=== PATIENT | female | born 1945 | race Caucasian/White ===

== ENCOUNTER → 2016-07-20 | Outpatient (CLI) | payer MEDICARE, MEDICAID ==
[~2016-07-20] MED LIST: ATEN50TA2 PO; ELIQ5TAB PO; ERGO500014 PO; FURO20TA2 PO; ONETAB11 PO
[2016-07-20 12:56] LABS: ANION GAP 6 MEQ/L (8-16); BLOOD UREA NITROGEN 16 MG/DL (7-18); CALCIUM LEVEL 8.7 MG/DL (8.8-10.2); CARBON DIOXIDE LEVEL 31 MEQ/L (21-32); CHLORIDE LEVEL 104 MEQ/L (98-107); CREATININE FOR GFR 0.69 MG/DL (0.55-1.02); GLOMERULAR FILTRATION RATE > 60.0 (>39); GLUCOSE, FASTING 107 MG/DL (83-110); POTASSIUM SERUM 4.1 MEQ/L (3.5-5.1); SODIUM LEVEL 141 MEQ/L (136-145)
== END ==
LOC: M LAB 11:58
PROVIDERS: ATTEND Family Medicine
DX: Z13.1 Encounter for screening for diabetes mellitus (principal)

== ENCOUNTER → 2016-08-06 | Outpatient (CLI) | payer MEDICARE, MEDICAID | LOC: M RAD 08:24 | PROVIDERS: ATTEND Family Medicine | DX: R91.1 Solitary pulmonary nodule (principal) ==

== ENCOUNTER → 2016-12-15 | Outpatient (REF) | payer MEDICARE, MEDICAID ==
[~2016-12-15] MED LIST changes: +ONE1TAB3 PO; -ONETAB11 PO
[2016-12-15 17:59] LABS: ANION GAP 7 MEQ/L (8-16); BLOOD UREA NITROGEN 12 MG/DL (7-18); CALCIUM LEVEL 9.5 MG/DL (8.8-10.2); CARBON DIOXIDE LEVEL 31 MEQ/L (21-32); CHLORIDE LEVEL 103 MEQ/L (98-107); CREATININE FOR GFR 0.68 MG/DL (0.55-1.02); GLOMERULAR FILTRATION RATE > 60.0 (>39); GLUCOSE, FASTING 83 MG/DL (83-110); POTASSIUM SERUM 4.3 MEQ/L (3.5-5.1); SODIUM LEVEL 141 MEQ/L (136-145)
== END ==
LOC: M SFHCPLAZ 14:45
PROVIDERS: ATTEND Family Medicine
DX: I10 Essential (primary) hypertension (principal)

== ENCOUNTER → 2017-01-26 | Outpatient (CLI) | payer MEDICARE, MEDICAID ==
--- NOTE | 2017-01-26 12:17 | REPMRS ---
Patient History The patient states she has not had a clinical breast exam in over a year. Patient is postmenopausal and had first child at age 32. No known family history of cancer. Implants in both breasts. Digital Woman Screen Mammo: January 26, 2017 - Exam #: [id number] Bilateral CC and MLO view(s) were taken. Technologist: Ching Moon Technologist Prior study comparison: January 08, 2015, digital woman screen mammo performed at [facility]. FINDINGS: The breast tissue is heterogeneously dense. This may lower the sensitivity of mammography. There is a fairly symmetric fibroglandular pattern in both breasts. There has been no interval development of masses, areas of architectural distortion or clusters of microcalcifications typical of malignancy. The implant margins are irregular bilaterally. There are silicone implants bilaterally. There is hyperdense abnormal material in the anterior breast soft tissues bilaterally consistent with extracapsular rupture with numerous foci of silicone in the soft tissues outside the implant margins. This pattern would significantly decrease the sensitivity of mammography for early breast cancer. There are a few benign calcifications. No definite suspicious findings. No significant changes when compared with prior studies. ASSESSMENT: BI-RADS/ACR category 2 mammogram. Benign finding(s). The sensitivity of mammography for breast malignancy is inhibited because of extracapsular silicone in the breast tissue and lack of optimal mammographic technique. Consider bilateral breast MRI scanning. Recommendation Routine screening mammogram of both breasts in 1 year (for women over age 40). This mammogram was interpreted with the aid of an FDA-approved computer-aided dectection system. Electronically Signed By: Marcelino Francisco MD 01/26/17 [id number]
--- NOTE | 2017-01-27 07:48 | DEXA ---
AP SPINE L1 - L4 1.162 -0.3 1.4 LT FEMUR TOTAL 0.735 -2.2 -0.6 RT FEMUR TOTAL 0.742 -2.1 -0.5 TOTAL BODY TOTAL OTHER DUAL FEMUR FRAX* ASSESSMENT Risk factors: Not done. 10 year probability of fracture Major osteoporotic fracture % Hip fracture % COMMENTS: Normal bone densitometry of the spine. There is low bone density of the hips. The density of the spine has increased 4.7% since 01/08/2015. The density of the left hip has increased 4.1% since 01/08/2015. The density of the right hip has increased 4.2% since 01/08/2015. The increased density of the spine does represent a significant change. The increased density of the left hip does represent a significant change. The increased density of the right hip does represent a significant change. FOLLOW-UP: Recommendation for the next bone density exam: 2 years. CYRIL
== END ==
LOC: M WHC 10:34
PROVIDERS: ATTEND Family Medicine
DX: Z12.31 Encounter for screening mammogram for malignant neoplasm of breast (principal); M85.80 Other specified disorders of bone density and structure, unspecified site; Z78.0 Asymptomatic menopausal state
CPT/HCPCS: 77080; G0202

== ENCOUNTER → 2017-07-06 | Outpatient (REF) | payer MEDICARE, MEDICAID ==
[2017-07-06 14:00] LABS: ANION GAP 7 MEQ/L (8-16); BLOOD UREA NITROGEN 15 MG/DL (7-18); CALCIUM LEVEL 9.3 MG/DL (8.8-10.2); CARBON DIOXIDE LEVEL 31 MEQ/L (21-32); CHLORIDE LEVEL 102 MEQ/L (98-107); CREATININE FOR GFR 0.67 MG/DL (0.55-1.30); GLOMERULAR FILTRATION RATE > 60.0 (>39); GLUCOSE, FASTING 98 MG/DL (70-100); POTASSIUM SERUM 4.3 MEQ/L (3.5-5.1); SODIUM LEVEL 140 MEQ/L (136-145)
== END ==
LOC: M SFHCPLAZ 10:27
DX: M85.80 Other specified disorders of bone density and structure, unspecified site (principal); I10 Essential (primary) hypertension (principal); L98.1 Factitial dermatitis; G31.84 Mild cognitive impairment of uncertain or unknown etiology; I48.91 Unspecified atrial fibrillation; R09.82 Postnasal drip; E55.9 Vitamin D deficiency, unspecified; Z79.899 Other long term (current) drug therapy
CPT/HCPCS: 80048

== ENCOUNTER → 2017-10-08 | Outpatient (REF) | payer MEDICARE, MEDICAID | LOC: M SFHCPLAZ 15:55 | DX: I10 Essential (primary) hypertension (principal); Z53.8 Procedure and treatment not carried out for other reasons ==

== ENCOUNTER → 2017-10-29 | Outpatient (REF) | payer MEDICARE, MEDICAID ==
[2017-10-29 13:11] LABS: ANION GAP 7 MEQ/L (8-16); BLOOD UREA NITROGEN 17 MG/DL (7-18); CALCIUM LEVEL 8.7 MG/DL (8.8-10.2); CARBON DIOXIDE LEVEL 31 MEQ/L (21-32); CHLORIDE LEVEL 104 MEQ/L (98-107); CREATININE FOR GFR 0.72 MG/DL (0.55-1.30); GLOMERULAR FILTRATION RATE > 60.0 (>39); GLUCOSE, FASTING 89 MG/DL (70-100); POTASSIUM SERUM 4.5 MEQ/L (3.5-5.1); SODIUM LEVEL 142 MEQ/L (136-145)
== END ==
LOC: M SFHCPLAZ 09:42
DX: I10 Essential (primary) hypertension (principal)
CPT/HCPCS: 80048

== ENCOUNTER → 2018-03-02 | Outpatient (CLI) | payer MEDICARE, MEDICAID | LOC: M WHC 08:56 | DX: Z12.31 Encounter for screening mammogram for malignant neoplasm of breast (principal); Z98.82 Breast implant status | CPT/HCPCS: 77067 ==

== ENCOUNTER 2018-07-03 02:59 | Inpatient (IN) | payer MEDICARE, MEDICAID ==
[~2018-07-03] VITALS: Ht 165.1 cm; Wt 85.5 kg
[2018-07-03] VITALS (17 sets, daily range): BP systolic 124–154; BP diastolic 59–83; O2SAT 95–98
[2018-07-03] MEDS ORDERED: NALOXONE INJ 2 MG/2 ML SYRINGE (J2310) IV STA (03:07)
[2018-07-03] MEDS ORDERED: LIDOCAINE 2% 5ML JELLY UROJET TOP ONE (03:15)
[2018-07-03] MEDS ORDERED: LISI10TA4 PO (03:31)
[2018-07-03] MEDS ORDERED: FLUTISP (03:31)
[2018-07-03] MEDS ORDERED: VITMTA PO (03:31)
[2018-07-03] MEDS ORDERED: PATIENT COMMENTS (03:33)
[2018-07-03 03:45] LABS: ABG BASE EXCESS 5.3 (-2.0-2.0); ABG HCO3 27.1 MEQ/L (22.0-26.0); ABG O2 SATURATION 96.8 % (95.0-99.0); ABG PARTIAL PRESSURE CO2 31.7 mmHg (35.0-45.0); ABG PARTIAL PRESSURE O2 79.5 mmHg (75.0-100.0); ABG STANDARD HCO3 29.2 MEQ/L (22.0-26.0); ABG TOTAL CO2 28.1 MEQ/L (23.0-31.0); BASO # 0.1 10^3/uL (0.0-0.2); BASO % 0.5 % (0.0-1.0); HEMATOCRIT 47.3 % (36.0-47.0); HEMOGLOBIN 15.5 g/dl (12.0-15.5); LYMPH # 1.2 10^3/uL (1.5-4.5); LYMPH % 10.6 % (24.0-44.0); MEAN CORPUSCULAR HEMOGLOBIN 30.5 pg (27.0-33.0); MEAN CORPUSCULAR HGB CONC 32.8 g/dl (32.0-36.5); MEAN CORPUSCULAR VOLUME 92.9 fl (80.0-96.0); MONO # 0.8 10^3/uL (0.0-0.8); MONO % 7.1 % (0.0-5.0); NEUTROPHILS % 81.3 % (36.0-66.0); PLATELET COUNT, AUTOMATED 328 10^3/uL (150-450); RED BLOOD COUNT 5.09 10^6/uL (4.00-5.40); WHITE BLOOD COUNT 11.1 10^3/uL (4.0-10.0)
--- NOTE | 2018-07-03 03:55 | REPVR ---
EXAM: CT Head Without Contrast EXAM DATE/TIME: 07/03/18 (3:19am) CLINICAL HISTORY: 72 year old female. Altered mental status / memory loss. Confusion or disorientation. TECHNIQUE: Axial computed tomography images of the head without contrast. All CT scans at this facility use at least one of these dose optimization techniques: automated exposure control; mA and/or kV adjustment per patient size (includes targeted exams where dose is matched to clinical indication); or iterative reconstruction. COMPARISON: No relevant prior studies available FINDINGS: Brain: No acute hemorrhage. No cerebral edema. Age-appropriate atrophic changes. Ventricles: Normal. No ventriculomegaly. Bones/joints: Unremarkable. No acute fracture. Sinuses: Visualized sinuses are unremarkable. No acute sinusitis. Mastoid air cells: Visualized mastoid air cells are unremarkable. No mastoid effusion. Soft tissues: Unremarkable. IMPRESSION: No acute intracranial pathology is appreciated. Chronic atrophic changes. Electronically signed by: Brittany Lal On 07/03/2018 03:55:09 AM
[2018-07-03 03:56] LABS: INR 1.04; PARTIAL THROMBOPLASTIN TIME 25.3 SECONDS (25.4-37.6); PROTHROMBIN TIME 13.7 SECONDS (12.1-14.4)
[2018-07-03 04:11] LABS: AMPHETAMINES LEVEL URINE NEGATIVE (NEGATIVE); BARBITURATES URINE NEGATIVE (NEGATIVE); BENZODIAZEPINES URINE NEGATIVE (NEGATIVE); CANNABINOIDS URINE NEGATIVE (NEGATIVE); COCAINE METABOLITE URINE NEGATIVE (NEGATIVE); METHADONE URINE NEGATIVE (NEGATIVE); OPIATES URINE NEGATIVE (NEGATIVE); PHENCYCLIDINE URINE NEGATIVE (NEGATIVE)
[2018-07-03 04:20] LABS: ALBUMIN 3.7 GM/DL (3.2-5.2); ALT/SGPT 19 U/L (12-78); BILIRUBIN,DIRECT 0.2 MG/DL (0.0-0.2); BILIRUBIN,TOTAL 0.6 MG/DL (0.2-1.0); BLOOD UREA NITROGEN 14 MG/DL (7-18); CALCIUM LEVEL 9.2 MG/DL (8.8-10.2); CARBON DIOXIDE LEVEL 31 MEQ/L (21-32); CHLORIDE LEVEL 98 MEQ/L (98-107); CPK CREATINE PHOSPHOKINASE 59 U/L (26-192); CREATININE FOR GFR 1.06 MG/DL (0.55-1.30); ETHYL ALCOHOL (ETHANOL) < 0.003 % (0.000-0.010); FREE THYROXINE INDEX 3.3 % (1.3-4.8); GLOMERULAR FILTRATION RATE 54.1 (>39); GLUCOSE, FASTING 177 MG/DL (70-100); MB/CK RELATIVE INDEX 2.37 (< OR =4); POTASSIUM SERUM 3.6 MEQ/L (3.5-5.1); SODIUM LEVEL 140 MEQ/L (136-145); T UPTAKE 33 % (30-39); TOTAL PROTEIN 7.7 GM/DL (6.4-8.2); TROPONIN I < 0.02 NG/ML (< 0.10)
[2018-07-03] MEDS ORDERED: ISOVUE-370 76% 100ML VIAL (Q9967) As Ordered ONE (04:31)
--- NOTE | 2018-07-03 05:27 | REPVR ---
EXAM: CT Abdomen and Pelvis With Contrast EXAM DATE/TIME: 07/03/2018 4:43 AM CLINICAL HISTORY: 72 years old, female; Signs and symptoms; Other: Dyspnea; Additional info: Dysp TECHNIQUE: Axial computed tomography images of the abdomen and pelvis with intravenous contrast. All CT scans at this facility use at least one of these dose optimization techniques: automated exposure control; mA and/or kV adjustment per patient size (includes targeted exams where dose is matched to clinical indication); or iterative reconstruction. Coronal and sagittal reformatted images were created and reviewed. CONTRAST: Contrast Material: 100 ml of ISOVUE 370; Contrast Route: IV COMPARISON: No relevant prior studies available. FINDINGS: Lower thorax: Moderate left lower lobe fibro-atelectatic change and mild lingular and right lower lobe fibro-atelectatic change. Subpleural anterolateral nodule in the right middle lobe measuring 8 mm. ABDOMEN: Liver: Normal. No mass. Gallbladder and bile ducts: Normal. No calcified stones. No ductal dilation. Pancreas: Normal. No ductal dilation. Spleen: Normal. No splenomegaly. Adrenals: Normal. No mass. Kidneys and ureters: Normal. No hydronephrosis. Stomach and bowel: There is colonic diverticulosis without evidence of diverticulitis. Appendix: A normal appendix is seen. PELVIS: Bladder: There is a Minor catheter in the bladder. Reproductive: Unremarkable as visualized. ABDOMEN and PELVIS: Intraperitoneal space: Normal. No free air. No significant fluid collection. Bones/joints: No acute fracture. No dislocation. Soft tissues: Calcified breast implants. Vasculature: There is moderate atherosclerotic calcification of the abdominal aorta with extension into the iliac arteries. Lymph nodes: Normal. No enlarged lymph nodes. IMPRESSION: 1. Moderate left lower lobe and mild lingular and right lower lobe fibro-atelectatic change. 2. Subpleural anterolateral right middle lobe nodule measuring 8 mm. For patients at low risk (minimal or absent history of smoking and of other known risk factors), recommend CT at 6-12 months, then consider CT at 18-24 months. For patients at high risk (history of smoking or of other known risk factors), recommend CT at 6-12 months, then CT at 18-24 months. (Lisa et al., Fleischner Society, 2017). 3. Colonic diverticulosis without diverticulitis. 4. Minor catheter in the bladder. Electronically signed by: Ayush Kolb On 07/03/2018 05:27:14 AM
[2018-07-03] MEDS ORDERED: VANCOMYCIN HCL 1,000 MG, VIAL MATE ADAPTER 1 EACH in D5W 250 ML IV ONE (05:30)
[2018-07-03] MEDS ORDERED: PIPERACILLIN/TAZOBACTAM SOD 3.375 GM in D5W MINI-BAG PLUS 50 ML IV ONE (05:30)
[2018-07-03] MEDS ORDERED: NOREPINEPHRINE BITARTRATE 16 MG in D5W 484 ML IV SCH (05:30)
--- NOTE | 2018-07-03 05:38 | REPVR ---
EXAM: CT Angiography Chest With Contrast EXAM DATE/TIME: 07/03/2018 4:43 AM CLINICAL HISTORY: 72 years old, female; Signs and symptoms; Dyspnea; Additional info: Dysp TECHNIQUE: Axial computed tomographic angiography images of the chest with intravenous contrast using CT angiography protocol. All CT scans at this facility use at least one of these dose optimization techniques: automated exposure control; mA and/or kV adjustment per patient size (includes targeted exams where dose is matched to clinical indication); or iterative reconstruction. Coronal and sagittal reformatted images were created and reviewed. MIP reconstructed images were created and reviewed. CONTRAST: Contrast Material: 100 ml of ISOVUE 370; Contrast Route: IV COMPARISON: CT Chest without contrast 08/06/2016 8:34 AM FINDINGS: Tubes, catheters and devices: ET tube above the pau. Pulmonary arteries: The main pulmonary artery measures 24 mm. Aorta: The ascending thoracic aorta measures 26 mm. Lungs: Endobronchial debris and plugging in the left apex. Moderate left lower lobe mild left upper lobe, lingular and right lower lobe fibro-atelectatic change. Subpleural nodular density in the right middle lobe measuring 7 mm. Origin stenosis or narrowing of the left lower lobe bronchus. Pleural space: Normal. No pneumothorax. No pleural effusion. Heart: Normal. No cardiomegaly. No pericardial effusion. Lymph nodes: Unremarkable. No enlarged lymph nodes. Bones/joints: Unremarkable. No acute fracture. Soft tissues: Unremarkable. IMPRESSION: 1. Endobronchial debris and plugging in the left upper lobe and origin stenosis or narrowing of the left lower lobe bronchus. There is probable narrowing or obstruction of the lingular bronchus as well. 2. Moderate left lower lobe and mild lingular, left upper lobe and right lower lobe fibro-atelectatic change. 3. ET tube above the pau. 4. Subpleural nodular density in the right middle lobe measuring 7 mm. For patients at low risk (minimal or absent history of smoking and of other known risk factors), recommend CT at 6-12 months, then consider CT at 18-24 months. For patients at high risk (history of smoking or of other known risk factors), recommend CT at 6-12 months, then CT at 18-24 months. (Lisa et al., Fleischner Society, 2017). Electronically signed by: Ayush Kolb On 07/03/2018 05:37:32 AM
[2018-07-03] MEDS ORDERED: NS 1,000 ML IV ONE ×2 (05:45)
[2018-07-03 05:51] LABS: ABG BASE EXCESS 1.1 (-2.0-2.0); ABG HCO3 22.9 MEQ/L (22.0-26.0); ABG PARTIAL PRESSURE CO2 28.8 mmHg (35.0-45.0); ABG PARTIAL PRESSURE O2 132.9 mmHg (75.0-100.0); ABG STANDARD HCO3 25.5 MEQ/L (22.0-26.0); ABG TOTAL CO2 23.8 MEQ/L (23.0-31.0); ABG pH (ARTERIAL) 7.518 UNITS (7.350-7.450)
[2018-07-03 06:04] LABS: APPEARANCE, URINE HAZY (CLEAR); BACTERIA, URINE AUTO NEGATIVE (NEGATIVE); BILIRUBIN, URINE AUTO NEGATIVE (NEGATIVE); BLOOD, URINE BLOOD NEGATIVE (NEGATIVE); COLOR, URINE AMBER (YELLOW); GLUCOSE, URINE (UA) AUTO NEGATIVE (NEGATIVE); GRANULAR CAST, URINE AUTO 1 /LPF; KETONE, URINE AUTO TRACE mg/dL (NEGATIVE); LEUKOCYTE ESTERASE, URINE AUTO NEGATIVE (NEGATIVE); MUCUS, URINE SMALL (NEGATIVE); NITRITE, URINE AUTO NEGATIVE (NEGATIVE); PROTEIN, URINE AUTO 1+ mg/dL (NEGATIVE); RBC, URINE AUTO 1 /HPF (0-3); SPECIFIC GRAVITY URINE AUTO 1.028 (1.002-1.035); SQUAMOUS EPITHELIAL CELL UR AU 1 /HPF (0-6); WBC, URINE AUTO 1 /HPF (0-3)
[2018-07-03] MEDS ORDERED: MIDAZOLAM INJ 2 MG/2 ML VIAL (J2250) IV PRN (07:15)
[2018-07-03] MEDS ORDERED: MORPHINE 4 MG/ML 1ML VIAL/SYRINGE (J2270) IV PRN (07:15)
[2018-07-03] MEDS ORDERED: ATENOLOL 50 MG TAB GT SCH (09:00)
[2018-07-03] MEDS: PANTOPRAZOLE 40MG INJ (PROTONIX) (C9113) IV SCH (09:37)
[2018-07-03] MEDS: KCL 20MEQ IN D5/0.45NS 1000ML 1,000 ML IV SCH ×2 (09:38→20:00)
[2018-07-03] MEDS: CHLORHEXIDINE GLUCONATE 0.12 % 15ML UDC (PERIDEX ORAL RINSE) MT SCH ×2 (09:38→22:24)
[2018-07-03] MEDS: IPRATROPIUM 0.5MG/ALBUTEROL 2.5MG INH SOL UD 3ML (DUONEB)(J7620) NEB SCH ×4 (09:54→19:54)
[2018-07-03 10:09] LABS: ABG BASE EXCESS 3.3 (-2.0-2.0); ABG O2 SATURATION 98.6 % (95.0-99.0); ABG PARTIAL PRESSURE CO2 42.9 mmHg (35.0-45.0); ABG PARTIAL PRESSURE O2 122.8 mmHg (75.0-100.0); ABG STANDARD HCO3 27.4 MEQ/L (22.0-26.0); ABG TOTAL CO2 29.3 MEQ/L (23.0-31.0); ABG pH (ARTERIAL) 7.432 UNITS (7.350-7.450)
--- NOTE | 2018-07-03 10:30 | REP ---
The portable chest, 03:23 a.m., AP view, the patient semi upright: Comparison is 10/23/2014. There is an endotracheal tube with tip in satisfactory position at the level of the aortic arch, above the pau. There is increased density in the inferior third of the left hemithorax compatible with infiltrate/atelectasis. There is mediastinal shift to the left. The left upper lobe is clear. The right lung is clear. Cardiac size is upper normal for positioning. Impression: Increased density inferiorly in the left lung, atelectasis versus infiltrate. Mediastinal shift to the left. Electronically Signed by Marcelino Talavera MD 07/03/2018 07:55 A
--- NOTE | 2018-07-03 10:31 | HPE ---
HISTORY AND PHYSICAL/CRITICAL CARE ADMIT NOTE: DATE OF ADMISSION: 07/03/2018 START TIME: 0650 hours STOP TIME: 0734 hours I was asked to see Love Porter here in the emergency room. 72-year-old female brought in by [facility] ([facility]). In essence, this is a 72-year-old female who lives with her daughter. History of atrial fibrillation and hypertension. Daughter reports that for the last several days she has had nausea and vomiting. They were concerned she had food poisoning. No fevers or chills. They went out last evening but when getting home the mother had difficulty with her balance even getting in the house. She went up and laid down in bed but laid crossways, which her daughter said is unusual. She then checked on her several hours later and heard a gurgling noise. The patient was completely unresponsive. EMS was summoned. On their arrival, she was completely unresponsive and was intubated at the scene. On arrival here, she remains completely unresponsive to all stimuli. CT of the head unremarkable for bleed. The remainder of the workup will be reviewed below. ALLERGIES: Listed as CODEINE. MEDICATIONS AT HOME: - Eliquis 5 mg daily - atenolol 50 mg daily - ergocalciferol 5000 units weekly - Lasix 20 mg at a day PAST MEDICAL HISTORY: Reportedly, significantly only for hypertension and atrial fibrillation with chronic anticoagulation with Eliquis. SOCIAL HISTORY: Nonsmoker. Lives at home with her daughter. FAMILY HISTORY: Otherwise, unobtainable. REVIEW OF SYSTEMS: Per the daughter, as per the history of present illness (HPI). Otherwise, constitutionally negative for any fevers or chills. HEENT unremarkable for double vision or blurry vision. Pulmonary as per the HPI. Cardiac significant for atrial fibrillation (AFib). Gastrointestinal (GI) significant for recent nausea or vomiting. Genitourinary () unremarkable for dysuria or urgency. Neurologic significant for recent dizziness. Endocrine unremarkable. for diabetes or thyroid. Hematologic unremarkable for any chronic bleeding dyscrasias. Allergic/immunologic unremarkable. Psychiatric unremarkable. Dermatologic unremarkable. Musculoskeletal is significant for some occasional arthralgias and myalgias. PHYSICAL EXAMINATION: Currently reveals an elderly female intubated here in the emergency room (ER). Blood pressure 128/61, heart rate 94 and is atrial fibrillation, respiratory rate 16 via the ventilator and she does not over breathe it. HEENT: Otherwise generally normocephalic, atraumatic. Pupils are approximately 5 mm. They are mid field and do not react to light. There is faint corneal on the left and no corneal on the right. Sclerae are nonicteric. Membranes are moist. Trachea is in the midline. Chest shows some rhonchi, left greater than right, with decreased breath sound intensity of the left. Expansion is symmetric. No other focal adventitious breath sounds are identified. Cardiac exam is irregularly irregular. Peripheral pulses palpable with no obvious edema. Abdomen: Soft with active bowel sounds. No hepatosplenomegaly or masses. Extremities show no cyanosis or clubbing. Neurologically, she is unresponsive to painful stimuli. She has bilateral upgoing toes. Only a corneal on the left, none on the right, and there is no gag. Chest x-ray shows the endotracheal tube to be in good position. I do believe there is significant cardiomegaly and left lower lobe infiltrate. CT scan of the head unremarkable. CT of the abdomen no acute abnormality. CT of the chest shows her left lower lobe infiltrate and question of a small right-sided nodule. Blood gas done on assist control of 14, tidal volume 385, PEEP of 8, FiO2 of 60%, pH 7.518, pCO2 of 28.8, and pAO2 of 132.9. White blood cell count 11.1, hemoglobin 15.5, platelet count 328,000, 81.3% segs, no bands. Sodium of 140, potassium 3.6, chloride 98, CO2 31, BUN 14, creatinine 1.06, glucose 177. Liver functions unremarkable. Toxicology screen negative. Urinalysis (UA) shows 1+ protein, trace ketones, 2+ urobilinogen. The most pressing problems requiring my immediate presence at the bedside: 1. 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 2. Atrial fibrillation. 3. Chronic anticoagulation. 4. History of hypertension. RECOMMENDATIONS: I had a very lengthy discussion at the bedside with her daughter, whom she lives with and at this point will be the decision-maker. Her exam at this point shows very significant central nervous system dysfunction. I am quite worried that this is either a significant brainstem event or diffuse of anoxic encephalopathy. Certainly with her nausea and vomiting she may have aspirated and been anoxic for some time, although I would expect her to be a little bit more in the way acidotic. At this point, we will have supportive care. She will get her IV fluids. Empiric antibiotics. Deep venous thrombosis (DVT) prophylaxis is already in place as she is on Eliquis. Would add ulcerative prophylaxis. Zosyn will be added in view of her aspiration. Maintenance fluids are started. Orogastric (OG) tube will be placed. We will facilitate transfer to the intensive care unit. I did discuss with her the fact that her exam currently pertains of a very poor prognosis. I will probably have neurology see her later today. We will repeat a CT scan likely in 24 hours and consider MRI if that is unrevealing. This does not appear to be something like meningitis. I left the bedside at 0734 hours. 34 minutes of critical care time was delivered at the bedside not including procedures. CYRIL
--- NOTE | 2018-07-03 11:46 | CR ---
DATE OF CONSULTATION: 07/03/2018 REFERRING PHYSICIAN: Dr. Jayson Donato REASON FOR CONSULTATION: Coma and unresponsiveness. HISTORY OF PRESENT ILLNESS: Love Porter is a 72-year-old woman, who lives with her daughter and is supposed to take Eliquis, but according to the pharmacy last time her Eliquis was refilled was in January 2018. Patient's daughter is her caregiver. She was at her baseline state of health until 3 days ago. She had breakfast from [employer]. She started having nausea and vomiting. She had trouble walking yesterday when daughter came home as the patient had trouble opening the door and walked to the door. She went to bed between 9 p.m. until 11 p.m. Daughter noted that she slept in an awkward position in bed last night. Daughter woke up around 2 in the morning to use the restroom and heard her mother making gurgling noise. She was unresponsive. Daughter called 911. Patient remained unresponsive. Patient was intubated in emergency department as she was unable to protect her airway. I was asked to see her this morning by Dr. Donato. Patient remains on mechanical ventilation without sedation and is completely unresponsive to verbal and painful stimuli. She does not have gag reflex. There are no reports of any new seizures, headaches, neck or back pain. Patient is unable to provide any history. Most of information was obtained from electronic medical records and patient's daughter who was present in the room with her. MEDICATIONS AT HOME: - Eliquis - Atenolol - Lasix - Vitamin D ALLERGIES: CODEINE. PAST MEDICAL HISTORY: 1. Atrial fibrillation. 2. Hypertension. SOCIAL HISTORY: Patient is a nonsmoker. She lives at home with her daughter. FAMILY HISTORY: Noncontributory. REVIEW OF SYSTEMS: All systems were reviewed and found to be noncontributory except as mentioned in history present illness. PHYSICAL EXAMINATION: Blood pressure 114/68, pulse 99, respiratory rate 11, 98% saturations on mechanical ventilation with 60% FiO2. Heart irregularly irregular. Lungs clear to auscultation. No pedal edema. No musculoskeletal abnormalities. No rash. No signs of meningeal irritation. No myoclonus. No nystagmus. Pupils are 3 mm unreactive to light. She has no corneal reflex. She has no gag reflex. She does not respond to verbal or painful stimuli. Plantars are upgoing bilaterally. Sensory, cerebellar and gait testing could not be performed. Deep tendon flexes are absent throughout. Motor testing could not be performed. DIAGNOSTIC STUDIES: CT scan of her head on my review showed hypodensity in left cerebellum, upper mid brain and thalamus. It was reported as unremarkable. Her WBCs are 11 and platelet count is 328. Complete metabolic profile is within normal limits except lactic acid is 4.1, fasting glucose 177. Urinalysis unremarkable. Urine toxicology screen is negative. ASSESSMENT: 1. Suspected upper brainstem and bilateral thalamic ischemic stroke. 2. 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 3. Coma related to above. PLAN: 1. MRI and MRA brain stat. 2. Her overall prognosis is guarded-poor. 3. Further recommendations after results of MRI scan of brain. We will continue supportive care and mechanical ventilation. CYRIL
--- NOTE | 2018-07-03 12:11 | REP ---
MRA BRAIN WITHOUT CONTRAST: HISTORY: Infarction. 3D TOF MR angiography was performed at the level of the [place] of See. There is no aneurysm or arteriovenous malformation. Mild atherosclerotic disease involves the cavernous internal carotid arteries and right middle cerebral artery trifurcation. Moderate atherosclerotic disease involves the left anterior cerebral artery and left middle cerebral artery trifurcation. 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 The proximal P1 posterior cerebral arteries are supplied by the posterior communicating arteries. The mid and distal posterior cerebral arteries are not seen. The distal left vertebral artery is not seen. This is secondary to severe stenosis or occlusion. The remaining major intracranial vessels are patent. IMPRESSION: 1. There is no aneurysm or arteriovenous malformation. 2. 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 The P1 segments of the posterior cerebral arteries are supplied by the posterior communicating arteries. The mid and distal posterior cerebral arteries are not seen. The left vertebral artery is not seen. This is secondary to severe stenosis or occlusion. 3. Other atherosclerotic disease as described above. Electronically Signed by Niko Gutierrez MD 07/04/2018 08:59 A
--- NOTE | 2018-07-03 12:15 | REP ---
MR BRAIN WITHOUT CONTRAST: HISTORY: Infarction. COMPARISON: CT 07/03/2018. Areas of increased signal intensity on diffusion and T2-weighted images are present in the thalami, posteromedial temporal lobes, cerebellum, midbrain, shala and left occipital lobe . These are decreased in signal intensity on ADC images and are consistent with acute __ infarctions _. There is mass effect with effacement of the overlying cortical sulci and partial effacement of the fourth ventricle. The fourth ventricle is midline. There is no intraparenchymal hemorrhage, mass or midline shift. The ventricular system and cortical sulci are dilated consistent with mild volume loss. There is no extracerebral collection. The sinuses are clear. There is loss of the normal signal intensity in the basilar artery ___ consistent with occlusion. The visualized sinuses are clear. IMPRESSION: There are acute infarctions in the thalami, posteromedial temporal lobes, the cerebellum, midbrain, shala, and left occipital lobe .There is no hemorrhage. Electronically Signed by Niko Gutierrez MD 07/04/2018 09:00 A
[2018-07-03] MEDS: PIPERACILLIN/TAZOBACTAM SOD 3.375 GM in D5W MINI-BAG PLUS 50 ML IV SCH ×3 (12:36→23:36)
--- NOTE | 2018-07-03 17:52 | ECGEPIP ---
Stationary ECG Study [facility] - ED Test Date: 2018-07-03 Pat Name: ANUPAM RIVERA Department: Room: [place] [address] Gender: F [employer]: GT : 1945 Requested By: SHANA WINN Order Number: [id number] Reading MD: Domitila Yeung Measurements Intervals [place] Rate: 91 P: WI: 0 QRS: 56 QRSD: 91 T: 24 QT: 397 QTc: 491 Interpretive Statements ATRIAL FIBRILLATION NONSPECIFIC ST & T-WAVE ABNORMALITY ABNORMAL RHYTHM ECG DECREASED RATE 10/23/14 Electronically Signed On 07-03-2018 17:51:48 EST by Domitila Yeung
--- NOTE | 2018-07-03 20:26 | CCN ---
DATE: 07/03/2018 TIME: 1730 hours I had a lengthy discussion at the bedside with the patient's daughter. She is aware of the fact that she has had a very large stroke. The likelihood that this will improve is negligible. She has requested that she be a DO NOT RESUSCITATE. She would like to give this time to see if this will get better. I had a long discussion that we will take this day by day and that anything more than several days really would be unrealistic, especially in view of her presentation. We will continue our current level of care, especially regarding her atrial fibrillation. She is not a candidate for anticoagulation given the size of her stroke.
[2018-07-04] VITALS (25 sets, daily range): BP systolic 123–181; BP diastolic 58–77; O2SAT 97–98
[2018-07-04] MEDS: IPRATROPIUM 0.5MG/ALBUTEROL 2.5MG INH SOL UD 3ML (DUONEB)(J7620) NEB SCH ×7 (00:14→23:42)
[2018-07-04 05:40] LABS: ABG BASE EXCESS 0.7 (-2.0-2.0); ABG HCO3 24.6 MEQ/L (22.0-26.0); ABG O2 SATURATION 98.7 % (95.0-99.0); ABG PARTIAL PRESSURE CO2 36.9 mmHg (35.0-45.0); ABG PARTIAL PRESSURE O2 125.9 mmHg (75.0-100.0); ABG STANDARD HCO3 25.2 MEQ/L (22.0-26.0); ABG TOTAL CO2 25.7 MEQ/L (23.0-31.0); ABG pH (ARTERIAL) 7.442 UNITS (7.350-7.450)
[2018-07-04] MEDS: KCL 20MEQ IN D5/0.45NS 1000ML 1,000 ML IV SCH ×4 (06:41→23:15)
[2018-07-04] MEDS: PIPERACILLIN/TAZOBACTAM SOD 3.375 GM in D5W MINI-BAG PLUS 50 ML IV SCH ×4 (06:41→23:09)
[2018-07-04 07:52] LABS: BASO # 0.1 10^3/uL (0.0-0.2); BASO % 0.4 % (0.0-1.0); EOS % 0.1 % (0.0-3.0); HEMATOCRIT 39.3 % (36.0-47.0); LYMPH # 1.2 10^3/uL (1.5-4.5); LYMPH % 10.1 % (24.0-44.0); MEAN CORPUSCULAR HEMOGLOBIN 30.3 pg (27.0-33.0); MEAN CORPUSCULAR HGB CONC 31.8 g/dl (32.0-36.5); MEAN CORPUSCULAR VOLUME 95.2 fl (80.0-96.0); MONO # 1.1 10^3/uL (0.0-0.8); MONO % 9.7 % (0.0-5.0); NEUTROPHILS # 9.2 10^3/uL (1.8-7.7); NEUTROPHILS % 79.3 % (36.0-66.0); PLATELET COUNT, AUTOMATED 187 10^3/uL (150-450); RED BLOOD COUNT 4.13 10^6/uL (4.00-5.40); WHITE BLOOD COUNT 11.6 10^3/uL (4.0-10.0)
[2018-07-04 07:53] LABS: HEMOGLOBIN 12.5 g/dl (12.0-15.5)
[2018-07-04 08:20] LABS: ALBUMIN 2.6 GM/DL (3.2-5.2); ALT/SGPT 12 U/L (12-78); BILIRUBIN,TOTAL 0.8 MG/DL (0.2-1.0); BLOOD UREA NITROGEN 11 MG/DL (7-18); CALCIUM LEVEL 7.1 MG/DL (8.8-10.2); CARBON DIOXIDE LEVEL 28 MEQ/L (21-32); CHLORIDE LEVEL 107 MEQ/L (98-107); CHOLESTEROL LEVEL 161 MG/DL (< 200); CPK CREATINE PHOSPHOKINASE 23 U/L (26-192); CREATININE FOR GFR 0.86 MG/DL (0.55-1.30); GLOMERULAR FILTRATION RATE > 60.0 (>39); GLUCOSE, FASTING 162 MG/DL (70-100); LDH LACTATE DEHYDROGENASE 145 U/L (84-246); PHOSPHORUS LEVEL 2.1 MG/DL (2.5-4.9); POTASSIUM SERUM 3.5 MEQ/L (3.5-5.1); SODIUM LEVEL 141 MEQ/L (136-145); TOTAL PROTEIN 6.1 GM/DL (6.4-8.2); TRIGLYCERIDES LEVEL 99 MG/DL (<150)
[2018-07-04] MEDS: CHLORHEXIDINE GLUCONATE 0.12 % 15ML UDC (PERIDEX ORAL RINSE) MT SCH ×2 (08:35→20:48)
[2018-07-04] MEDS: PANTOPRAZOLE 40MG INJ (PROTONIX) (C9113) IV SCH (08:35)
--- NOTE | 2018-07-04 08:55 | REP ---
Clinical: Respiratory failure. Comparison: 07/03/2018. Findings: Examination is limited by portable technique and positioning. Endotracheal tube approximately 2.2 cm above the pau. Nasogastric tube courses below left hemidiaphragm in satisfactory position. Lung alston demonstrate chronic interstitial changes. Superimposed layering effusions and left lower lobe consolidation cannot be excluded. Impression: 1. Lines and tubes in satisfactory position. 2. Left lower lobe consolidation and possible bilateral layering effusions. Electronically Signed by Jagdeep Light MD 07/04/2018 08:45 A
[2018-07-04] MEDS ORDERED: PILL CRUSHER/CUTTER 1 EACH XX PRN ×2 (09:00→09:15)
[2018-07-04] MEDS: METOPROLOL TART 12.5 MG PER 1/2 TAB GT SCH ×4 (09:05→23:09)
--- NOTE | 2018-07-04 09:50 | CCN ---
DATE OF SERVICE: 07/04/2018 START TIME: 829 STOP TIME: 903 I again attended Love Porter here in the intensive care unit (ICU). Patient has been examined and chart reviewed. She remains mechanically ventilated. She has required no sedation. T-max overnight 99.4, blood pressure 130-160 systolic, heart rate 80 to low 100s and remains in atrial fibrillation. She does at times over breathe the ventilator. Input and output: 3825 mL in with 1080 mL out. Chest x-ray showed ET tube in good position. There is a faint infiltrate in the retrocardiac area. No other acute findings. White blood cell count 11.6, platelet count 87,000. 79% segmented neutrophils, no bands. Sodium 141, potassium 3.5, chloride 107, CO2 28, BUN 11, creatinine 0.86, glucose 162, phosphorus 2.1, albumin 2.6. Blood gas done on PRBC rate of 10, tidal volume 400, PEEP of 5. FiO2 of 30%. pH 7.442, pCO2 of 36.9, pO2 125.9. On exam, she is unresponsive. Pupils are mid point and nonreactive. She does have corneal reflexes. No cough or gag. Membranes are moist. Trachea is in the midline. Chest shows symmetric expansion. Clear anteriorly. Maybe diminished at the bases. No other focal adventitious breath sounds are identified. Cardiac exam is irregularly irregular. Peripheral pulses are diminished but palpable. No obvious edema. Abdomen is soft, active bowel sounds. No hepatosplenomegaly or masses. Extremities without cyanosis or clubbing. Neurologically she is unresponsive. She has upgoing toes bilaterally which are brisk. No reflexes. MRI from yesterday confirms infarct in the bilateral thalamus, posterior medial temporal lobe, cerebellum, mid brain and shala, and left occipital lobe consistent with her neurological exam. The most pressing problems requiring my immediate presence at the bedside: 1. Respiratory failure requiring mechanical ventilatory support secondary to massive cerebrovascular accident (CVA). 2. Significant posterior circulation stroke. 3. Chronic atrial fibrillation with suspected noncompliance with medication. 4. DO NOT RESUSCITATE status. 5. Suspect aspiration pneumonia. At this point per Neurology's recommendation, I would not anticoagulate her as I believe this would result in hemorrhage.The prognosis regarding her event is grim overall regarding significant return of neurologic recovery. I spoke at length with the daughter in that regard as did neurology, but it does not appear that she is grasping the gravity of the situation. For now, we will continue her empiric antimicrobials. I will being enteral feeds today. We will continue on her beta-kamari for her rate control for atrial fibrillation. Ulcer deep venous thrombosis (DVT) prophylaxis are in place. The daughter did make her DO NOT RESUSCITATE and I believe that is quite appropriate. We will proceed as outlined above. Prognosis regarding her overall status is grim. I left the bedside at 0904 hours. A total of 34 minutes critical care time delivered at the bedside not including procedures. CYRIL
[2018-07-05] VITALS (66 sets, daily range): BP systolic 121–209; BP diastolic 58–108; O2SAT 97
[2018-07-05] MEDS ORDERED: METOPROLOL 5 MG/5 ML VIAL IV STA ×3 (01:31→01:59)
[2018-07-05] MEDS ORDERED: LABETALOL HCL 100 MG/20 ML VIAL IV STA (02:14)
[2018-07-05] MEDS: IPRATROPIUM 0.5MG/ALBUTEROL 2.5MG INH SOL UD 3ML (DUONEB)(J7620) NEB SCH ×6 (02:44→23:30)
[2018-07-05] MEDS ORDERED: LABETALOL HCL 200 MG in D5W 160 ML IV SCH (04:15)
[2018-07-05 05:17] LABS: BASO # 0.1 10^3/uL (0.0-0.2); BASO % 0.4 % (0.0-1.0); EOS % 0.1 % (0.0-3.0); HEMATOCRIT 38.6 % (36.0-47.0); HEMOGLOBIN 12.1 g/dl (12.0-15.5); LYMPH # 0.7 10^3/uL (1.5-4.5); LYMPH % 5.3 % (24.0-44.0); MEAN CORPUSCULAR HGB CONC 31.3 g/dl (32.0-36.5); MEAN CORPUSCULAR VOLUME 95.8 fl (80.0-96.0); MONO # 1.2 10^3/uL (0.0-0.8); MONO % 8.5 % (0.0-5.0); NEUTROPHILS # 11.4 10^3/uL (1.8-7.7); NEUTROPHILS % 84.8 % (36.0-66.0); PLATELET COUNT, AUTOMATED 166 10^3/uL (150-450); RED BLOOD COUNT 4.03 10^6/uL (4.00-5.40); WHITE BLOOD COUNT 13.5 10^3/uL (4.0-10.0)
[2018-07-05 05:33] LABS: ABG BASE EXCESS -1.2 (-2.0-2.0); ABG O2 SATURATION 99.4 % (95.0-99.0); ABG PARTIAL PRESSURE O2 170.1 mmHg (75.0-100.0); ABG STANDARD HCO3 23.5 MEQ/L (22.0-26.0); ABG TOTAL CO2 21.8 MEQ/L (23.0-31.0); ABG pH (ARTERIAL) 7.492 UNITS (7.350-7.450)
[2018-07-05 05:47] LABS: ALBUMIN 2.4 GM/DL (3.2-5.2); ALT/SGPT 17 U/L (12-78); BLOOD UREA NITROGEN 8 MG/DL (7-18); CALCIUM LEVEL 7.6 MG/DL (8.8-10.2); CARBON DIOXIDE LEVEL 23 MEQ/L (21-32); CHLORIDE LEVEL 108 MEQ/L (98-107); CHOLESTEROL LEVEL 159 MG/DL (< 200); CPK CREATINE PHOSPHOKINASE 56 U/L (26-192); CREATININE FOR GFR 0.86 MG/DL (0.55-1.30); GLOMERULAR FILTRATION RATE > 60.0 (>39); GLUCOSE, FASTING 189 MG/DL (70-100); LDH LACTATE DEHYDROGENASE 284 U/L (84-246); POTASSIUM SERUM 4.2 MEQ/L (3.5-5.1); SODIUM LEVEL 137 MEQ/L (136-145); TOTAL PROTEIN 6.5 GM/DL (6.4-8.2); TRIGLYCERIDES LEVEL 74 MG/DL (<150)
[2018-07-05] MEDS: KCL 20MEQ IN D5/0.45NS 1000ML 1,000 ML IV SCH ×2 (06:54→22:06)
[2018-07-05] MEDS: PIPERACILLIN/TAZOBACTAM SOD 3.375 GM in D5W MINI-BAG PLUS 50 ML IV SCH ×3 (06:55→17:31)
--- NOTE | 2018-07-05 08:41 | REP ---
Clinical: respiratory failure. Comparison: 07/04/2018. Findings: ETT and NGT are in stable position. The mediastinum and cardiac silhouette are stable. Trace right basilar atelectasis noted. No definite effusion or pneumothorax. Skeletal structures are intact. Impression: Trace right basilar atelectasis. Electronically Signed by Jagdeep Light MD 07/05/2018 08:33 A
[2018-07-05] MEDS: PANTOPRAZOLE 40MG INJ (PROTONIX) (C9113) IV SCH (09:37)
[2018-07-05] MEDS: CHLORHEXIDINE GLUCONATE 0.12 % 15ML UDC (PERIDEX ORAL RINSE) MT SCH ×2 (09:37→20:04)
[2018-07-05] MEDS: NEUTRA-PHOS 1.25 GM PACKET PO SCH ×3 (10:47→20:04)
[2018-07-05] MEDS: METOPROLOL TART 25 MG TABLET GT SCH ×2 (12:04→17:30)
--- NOTE | 2018-07-05 22:02 | CCN ---
DATE: 07/05/2018 START TIME: 0830 hours STOP TIME: 0910 hours I again attended Love Porter here in the intensive care unit (ICU). The patient has been examined and chart reviewed. Maximum temperature (t-max) overnight 100.2, blood pressure 130s to a max of 209. Heart rate 90 to the 120s. Input and output 3526 mL in with 963 mL out. Most recent laboratories show a white blood cell count of 13.5, hemoglobin 12.1 and platelet count of 166,000, 80% segmented neutrophils, no bands. Sodium 137, potassium 4.2, chloride 108, CO2 of 23, BUN 8, creatinine 0.86, glucose 189. Phosphorous low this morning at 1 and is being repleted. Blood gas done on PRVC, rate of 10, tidal volume of 400, PEEP of 5, FiO2 of 30% shows a pH of 7.492, PCO2 of 28.0, PO2 of 170. Chest x-ray shows the tubes in good position. I do believe that there is a persistent intracardiac retrocardiac density. Sputum gram stain has some WBCs with a few gram-positive cocci and gram-negative rods. The patient remains on Zosyn. She is tolerating tube fees at goal. PHYSICAL EXAMINATION: She has not received any sedation. She remains completely unresponsive to all stimuli. She does have corneals but no cough or gag. Pupils are mid point and fixed. Toes are upgoing bilaterally. Trachea is in the midline. Membranes are moist. Chest is clear anteriorly, decreased at the bases, left more greater than right. No convincing rhonchi. Cardiac exam is irregularly irregular. Peripheral pulses palpable. Trace edema at the best. Abdomen is soft, active bowel sounds. No hepatosplenomegaly or masses. Extremities are without cyanosis or clubbing. Neurologically, as outlined above. Through the night, she had an acute spike in both blood pressure and heart rate. It did respond to IV labetalol. This is being weaned off and we are increasing her other beta kamari. I was unable to speak with her daughter yesterday, but she does remain a DO NOT RESUSCITATE. Ulcer and deep vein thrombosis (DVT) prophylaxis are in place. Most pressing problems requiring my presence at the bedside: 1. Respiratory alkalosis. 2. Respiratory failure secondary to CVA. 3. Posterior circulation CVA. 4. Atrial fibrillation. 5. Hypertension. 6. DO NOT RESUSCITATE status. At this point, we will continue current level of supportive care. Her prognosis is grim regarding meaningful recovery in view of the above. Her daughter unfortunately remains unrealistic regarding her chances of recovery. I will continue to speak with her at every opportunity. For now, we will make the changes outlined above. We will continue full supportive care. I left the bedside at 0910 hours. 40 minutes of critical care time was delivered at the bedside, not including procedures.
[2018-07-06] VITALS (30 sets, daily range): BP systolic 144–193; BP diastolic 67–93; O2SAT 97–99
[2018-07-06] MEDS: METOPROLOL TART 25 MG TABLET GT SCH ×3 (00:12→12:24)
[2018-07-06] MEDS: PIPERACILLIN/TAZOBACTAM SOD 3.375 GM in D5W MINI-BAG PLUS 50 ML IV SCH ×4 (00:12→17:26)
[2018-07-06] MEDS: IPRATROPIUM 0.5MG/ALBUTEROL 2.5MG INH SOL UD 3ML (DUONEB)(J7620) NEB SCH ×5 (04:52→19:25)
[2018-07-06 05:41] LABS: ABG BASE EXCESS 0.3 (-2.0-2.0); ABG HCO3 23.9 MEQ/L (22.0-26.0); ABG O2 SATURATION 97.7 % (95.0-99.0); ABG PARTIAL PRESSURE CO2 34.8 mmHg (35.0-45.0); ABG PARTIAL PRESSURE O2 92.3 mmHg (75.0-100.0); ABG STANDARD HCO3 24.8 MEQ/L (22.0-26.0); ABG TOTAL CO2 24.9 MEQ/L (23.0-31.0); ABG pH (ARTERIAL) 7.454 UNITS (7.350-7.450)
[2018-07-06 05:42] LABS: BASO # 0.1 10^3/uL (0.0-0.2); BASO % 0.7 % (0.0-1.0); EOS # 0.1 10^3/uL (0.0-0.50); EOS % 0.6 % (0.0-3.0); HEMATOCRIT 36.2 % (36.0-47.0); HEMOGLOBIN 11.4 g/dl (12.0-15.5); LYMPH # 1.1 10^3/uL (1.5-4.5); LYMPH % 9.9 % (24.0-44.0); MEAN CORPUSCULAR HGB CONC 31.5 g/dl (32.0-36.5); MEAN CORPUSCULAR VOLUME 95.3 fl (80.0-96.0); MONO # 1.3 10^3/uL (0.0-0.8); MONO % 12.3 % (0.0-5.0); NEUTROPHILS # 8.2 10^3/uL (1.8-7.7); NEUTROPHILS % 75.9 % (36.0-66.0); PLATELET COUNT, AUTOMATED 178 10^3/uL (150-450); WHITE BLOOD COUNT 10.9 10^3/uL (4.0-10.0)
[2018-07-06 05:58] LABS: ALBUMIN 2.2 GM/DL (3.2-5.2); ALT/SGPT 26 U/L (12-78); BILIRUBIN,TOTAL 0.6 MG/DL (0.2-1.0); BLOOD UREA NITROGEN 10 MG/DL (7-18); CARBON DIOXIDE LEVEL 25 MEQ/L (21-32); CHLORIDE LEVEL 112 MEQ/L (98-107); CHOLESTEROL LEVEL 145 MG/DL (< 200); CPK CREATINE PHOSPHOKINASE 47 U/L (26-192); GLOMERULAR FILTRATION RATE > 60.0 (>39); GLUCOSE, FASTING 179 MG/DL (70-100); LDH LACTATE DEHYDROGENASE 254 U/L (84-246); PHOSPHORUS LEVEL 2.8 MG/DL (2.5-4.9); POTASSIUM SERUM 4.3 MEQ/L (3.5-5.1); SODIUM LEVEL 143 MEQ/L (136-145); TOTAL PROTEIN 6.6 GM/DL (6.4-8.2); TRIGLYCERIDES LEVEL 76 MG/DL (<150)
--- NOTE | 2018-07-06 08:11 | REP ---
Clinical: Respiratory failure Comparison: 07/05/2018. Findings: Endotracheal tube and nasogastric tube are in stable satisfactory position. Mediastinum and cardiac silhouette are stable. Lung alston demonstrate chronic changes. Left lower lobe consolidation and trace right basilar atelectasis cannot be excluded. Impression: Left lower lobe consolidation and trace right basilar atelectasis suggested. Electronically Signed by Jagdeep Light MD 07/06/2018 08:03 A
[2018-07-06] MEDS: PANTOPRAZOLE 40MG INJ (PROTONIX) (C9113) IV SCH (09:08)
[2018-07-06] MEDS: CHLORHEXIDINE GLUCONATE 0.12 % 15ML UDC (PERIDEX ORAL RINSE) MT SCH ×2 (09:08→20:53)
[2018-07-06] MEDS: NEUTRA-PHOS 1.25 GM PACKET PO SCH ×3 (09:08→20:53)
--- NOTE | 2018-07-06 09:46 | CCN ---
DATE OF VISIT: 07/06/2018 START TIME: 819 STOP TIME: 854 I again attended Love Porter here in the intensive care unit. The patient has been examined and chart reviewed. She has required no sedation. Maximum temperature (Tmax) overnight 100.2, blood pressure 150-175 systolic, heart rate generally in the 100s-120s in atrial fibrillation, respiratory rate 15-20. Input and output midnight to midnight 4360 mL in with 3540 mL out. Sodium 143, potassium of 4.3, chloride 112, CO2 25, BUN 10, creatinine 0.8, glucose 179, albumin 2.2. White blood cell count 10.9, hemoglobin 11.4, platelet count of 170,000, 75.9% segmented neutrophils, no bands. Blood gas done on a pressure-regulated volume control (PRVC), mode of 10, tidal volume of 380, PEEP of 5, FIO2 of 30%, pH of 7.454, PCO2 of 30.8, PO2 of 92.3. Chest x-ray shows no new findings. Tubes in good position. Sputum culture came back with a streptococcus species, pansensitive She is tolerating tube fees at goal. On examination, she remains essentially unresponsive to anything but noxious stimuli. To those, she really has only posturing. Appears mainly decorticate. Pupils are midpoint and fixed. She does have corneals. There is no cough or gag. Membranes are moist. Trachea is in the midline. Chest shows the rarest rhonchi. Clears with suctioning. Mildly diminished breath sound intensity at the bases. Otherwise, no other focal adventitious breath sounds are identified. Cardiovascular examination: Is irregularly irregular. Peripheral pulses are palpable. Trace edema at best. Abdomen is soft with active bowel sounds. No hepatosplenomegaly or masses. Extremities are without cyanosis or clubbing. Neurologically, as outlined above. Most pressing problems requiring my presence at the bedside: 1. Respiratory failure secondary to significant cerebrovascular accident (CVA). 2. Posterior circulation cerebrovascular accident. 3. Hypertension. 4. Atrial fibrillation. 6. DO NOT RESUSCITATE (DNR) status. At this point, she is tolerating her tube feeds. Ulcer and deep venous thrombosis (DVT) prophylaxis are in place. Will continue empiric antimicrobials. She is reasonably rate controlled on beta blockers. Unfortunately, given the size of her stroke, we cannot anticoagulate her fully, as the risk for intracranial hemorrhage is excessive. No seizure activity. She does have posturing today, which she did not have the first several days, and this is not necessarily positive development. I have not been able to speak further with her daughter, as she had wished prolonged support for several weeks initially. The patient remains DNR status, however. At this point, we will continue her current level of supportive care. I appreciate help from neurology. I left the bedside at 0855 hours. 35 minutes of critical care time was delivered at the bedside, not including procedures.
[2018-07-06] MEDS: KCL 20MEQ IN D5/0.45NS 1000ML 1,000 ML IV SCH (16:04)
[2018-07-06] MEDS: METOPROLOL TART 50 MG TAB GT SCH (17:26)
[2018-07-06] MEDS ORDERED: LISINOPRIL 10 MG TAB GT ONE (20:45)
[2018-07-06] MEDS ORDERED: METOPROLOL 5 MG/5 ML VIAL IV ONE (20:45)
[2018-07-07] VITALS (30 sets, daily range): BP systolic 106–195; BP diastolic 57–105
[2018-07-07] MEDS: PIPERACILLIN/TAZOBACTAM SOD 3.375 GM in D5W MINI-BAG PLUS 50 ML IV SCH ×4 (00:17→17:11)
[2018-07-07] MEDS: METOPROLOL TART 50 MG TAB GT SCH ×2 (00:17→06:11)
[2018-07-07] MEDS: IPRATROPIUM 0.5MG/ALBUTEROL 2.5MG INH SOL UD 3ML (DUONEB)(J7620) NEB SCH ×7 (00:22→23:36)
[2018-07-07] MEDS: ACETAMINOPHEN 325 MG/10.15 ML UDC GT PRN ×3 (02:23→20:10)
[2018-07-07] MEDS: METOPROLOL 5 MG/5 ML VIAL IV PRN ×2 (03:46→08:43)
[2018-07-07 05:06] LABS: BASO # 0.1 10^3/uL (0.0-0.2); BASO % 0.7 % (0.0-1.0); EOS # 0.1 10^3/uL (0.0-0.50); EOS % 1.3 % (0.0-3.0); HEMATOCRIT 36.4 % (36.0-47.0); HEMOGLOBIN 11.3 g/dl (12.0-15.5); LYMPH # 1.2 10^3/uL (1.5-4.5); LYMPH % 14.6 % (24.0-44.0); MEAN CORPUSCULAR VOLUME 96.6 fl (80.0-96.0); MONO # 1.1 10^3/uL (0.0-0.8); MONO % 12.7 % (0.0-5.0); NEUTROPHILS # 5.8 10^3/uL (1.8-7.7); NEUTROPHILS % 69.9 % (36.0-66.0); PLATELET COUNT, AUTOMATED 201 10^3/uL (150-450); RED BLOOD COUNT 3.77 10^6/uL (4.00-5.40); WHITE BLOOD COUNT 8.3 10^3/uL (4.0-10.0)
[2018-07-07 05:29] LABS: BILIRUBIN,TOTAL 0.7 MG/DL (0.2-1.0); CALCIUM LEVEL 8.2 MG/DL (8.8-10.2); GLOMERULAR FILTRATION RATE 57.9 (>39); PHOSPHORUS LEVEL 3.3 MG/DL (2.5-4.9); POTASSIUM SERUM 4.5 MEQ/L (3.5-5.1); TOTAL PROTEIN 6.3 GM/DL (6.4-8.2)
[2018-07-07 05:58] LABS: ABG BASE EXCESS 1.5 (-2.0-2.0); ABG O2 SATURATION 97.6 % (95.0-99.0); ABG PARTIAL PRESSURE CO2 35.6 mmHg (35.0-45.0); ABG PARTIAL PRESSURE O2 90.4 mmHg (75.0-100.0); ABG STANDARD HCO3 25.8 MEQ/L (22.0-26.0); ABG TOTAL CO2 26.1 MEQ/L (23.0-31.0); ABG pH (ARTERIAL) 7.464 UNITS (7.350-7.450)
[2018-07-07] MEDS: KCL 20MEQ IN D5/0.45NS 1000ML 1,000 ML IV SCH ×3 (06:10→22:44)
--- NOTE | 2018-07-07 08:08 | REP ---
Clinical: Respiratory failure. Comparison: 07/06/2018. Findings: Endotracheal tube approximately 2.5 cm above the pau. Nasogastric tube below left hemidiaphragm. Mediastinum and cardiac silhouette are stable. Lung alston demonstrate chronic changes. Subtle basilar atelectasis may be slightly improved. No focal consolidation. Small layering right effusion cannot be excluded. No pneumothorax. Skeletal structures stable. Impression: Possible small layering right effusion. Mildly improved basilar atelectasis. Electronically Signed by Jagdeep Light MD 07/07/2018 08:00 A
[2018-07-07] MEDS: NEUTRA-PHOS 1.25 GM PACKET PO SCH ×3 (08:44→20:10)
[2018-07-07] MEDS: LISINOPRIL 10 MG TAB GT SCH (08:44)
[2018-07-07] MEDS: CHLORHEXIDINE GLUCONATE 0.12 % 15ML UDC (PERIDEX ORAL RINSE) MT SCH ×2 (08:44→20:09)
[2018-07-07] MEDS: PANTOPRAZOLE 40MG INJ (PROTONIX) (C9113) IV SCH (08:44)
--- NOTE | 2018-07-07 09:42 | CCN ---
DATE: 07/07/2018 START TIME: 0820 hours STOP TIME: 0857 hours I again attended Love Porter here in the intensive care unit. The patient has been examined and her chart reviewed. She has required no sedation. T-max overnight 103 degrees at 0345 hours, 100.6. Blood pressure 140 to 190s. Heart rate 110 to 150 with atrial fibrillation. Respiratory rate generally in the 20s. Intake and output midnight to midnight 3140 mL in with 3140 mL out. Most recent laboratories show a white blood cell count of 8.3, hemoglobin 11.3, platelet count of 201,000, 69.9% segs, no bands. Sodium 141, K of 4.5, chloride 107, CO2 26, BUN 14, creatinine of 1, glucose 218. Phosphorous 3.3. Blood gas done on a PRVC rate of 10, tidal volume 380, PEEP of 5, FiO2 of 30% shows pH of 7.464, pCO2 of 35.6, pO2 of 90.4. Chest x-ray is reviewed and shows no new findings. Tube is in good position. On exam, she remains essentially unresponsive to anything but noxious stimuli. She only has some withdrawal and posturing to those. Pupils are midpoint and fixed, at about 5 mm. She does have a least some degree of corneal reflexes. No cough or gag. Toes remain upgoing. Membranes are moist. Trachea is in the midline. Chest shows diminished breath sounds mildly. There is the rarest of rhonchi. Diminished at the bases. No other focal adventitious breath sounds are identified. Cardiac exam is irregularly irregular. Peripheral pulses palpable. No edema. Abdomen soft with active bowel sounds. No convincing organomegaly or masses. Extremities no cyanosis or clubbing. Neurologically as outlined above. She remains on ulcer and deep vein thrombosis (DVT) prophylaxis. She is on empiric Zosyn for suspected aspiration. The most pressing problems requiring my presence at the bedside: 1. Respiratory alkalosis. 2. Respiratory failure requiring mechanical ventilatory support. 3. Significant posterior circulation cerebrovascular accident (CVA). 4. Atrial fibrillation. 5. DO NOT RESUSCITATE status. At this point, we are continuing our current level of supportive care. Her daughter remains steadfast in her decision regarding continuing current level of support. She continues to hold out hope that there will be improvement. She does remain a DO NOT RESUSCITATE status, however. Medication adjustments were made to better achieve rate control with her atrial fibrillation. Blood pressure is reasonable, but I would prefer she be between 150 and 160 systolic. Adjustments are made in her beta blockers and if that is not sufficient for rate control and blood pressure, then we can increase her lisinopril. She is tolerating tube feeds. She has not had a bowel movement and will add cathartics starting from below. Will continue as outlined above. Overall prognosis remains grim regarding meaningful neurologic recovery. I left the bedside at 0857 hours. 37 minutes of critical care time were delivered at the bedside, not including procedures.
[2018-07-07] MEDS: METOPROLOL TART 25 MG TABLET GT SCH ×2 (11:16→17:11)
[2018-07-07] MEDS ORDERED: DIGOXIN INJ 0.5 MG/2 ML AMP (J1160) IV STA (11:32)
[2018-07-07] MEDS: BISACODYL 10 MG SUPP PR PRN (12:00)
[2018-07-08] VITALS (22 sets, daily range): BP systolic 107–163; BP diastolic 55–81
[2018-07-08] MEDS: METOPROLOL TART 25 MG TABLET GT SCH ×4 (00:31→18:27)
[2018-07-08] MEDS: PIPERACILLIN/TAZOBACTAM SOD 3.375 GM in D5W MINI-BAG PLUS 50 ML IV SCH ×4 (00:31→18:27)
[2018-07-08] MEDS: ACETAMINOPHEN 325 MG/10.15 ML UDC GT PRN ×2 (02:37→09:48)
[2018-07-08 04:13] LABS: BASO # 0.1 10^3/uL (0.0-0.2); BASO % 0.6 % (0.0-1.0); EOS # 0.2 10^3/uL (0.0-0.50); EOS % 2.2 % (0.0-3.0); HEMATOCRIT 37.7 % (36.0-47.0); HEMOGLOBIN 11.7 g/dl (12.0-15.5); LYMPH % 10.9 % (24.0-44.0); MEAN CORPUSCULAR HEMOGLOBIN 30.5 pg (27.0-33.0); MEAN CORPUSCULAR VOLUME 98.2 fl (80.0-96.0); MONO # 1.3 10^3/uL (0.0-0.8); MONO % 14.1 % (0.0-5.0); NEUTROPHILS # 6.7 10^3/uL (1.8-7.7); NEUTROPHILS % 71.2 % (36.0-66.0); PLATELET COUNT, AUTOMATED 196 10^3/uL (150-450); RED BLOOD COUNT 3.84 10^6/uL (4.00-5.40); WHITE BLOOD COUNT 9.4 10^3/uL (4.0-10.0)
[2018-07-08 04:37] LABS: BILIRUBIN,TOTAL 0.8 MG/DL (0.2-1.0); CALCIUM LEVEL 8.3 MG/DL (8.8-10.2); CREATININE FOR GFR 1.08 MG/DL (0.55-1.30); GLOMERULAR FILTRATION RATE 52.9 (>39); PHOSPHORUS LEVEL 3.5 MG/DL (2.5-4.9); POTASSIUM SERUM 4.8 MEQ/L (3.5-5.1); TOTAL PROTEIN 6.7 GM/DL (6.4-8.2)
[2018-07-08] MEDS: IPRATROPIUM 0.5MG/ALBUTEROL 2.5MG INH SOL UD 3ML (DUONEB)(J7620) NEB SCH ×5 (04:42→19:25)
[2018-07-08 05:22] LABS: ABG BASE EXCESS 0.8 (-2.0-2.0); ABG HCO3 25.2 MEQ/L (22.0-26.0); ABG O2 SATURATION 96.4 % (95.0-99.0); ABG PARTIAL PRESSURE CO2 39.7 mmHg (35.0-45.0); ABG PARTIAL PRESSURE O2 84.9 mmHg (75.0-100.0); ABG STANDARD HCO3 25.2 MEQ/L (22.0-26.0); ABG TOTAL CO2 26.4 MEQ/L (23.0-31.0); ABG pH (ARTERIAL) 7.421 UNITS (7.350-7.450)
--- NOTE | 2018-07-08 08:16 | REP ---
PORTABLE CHEST X-RAY: Single view. HISTORY: Respiratory failure. COMPARISON STUDY: July 07, 2018. FINDINGS: EKG monitoring electrodes overlie the chest. An endotracheal tube is seen in place at the level of proximal clavicles. NG tube enters left upper quadrant. Mild cardiac enlargement is seen as before. There is hazy increased density at the left base obscuring the left hemidiaphragm consistent with a small quantity of left pleural fluid. This is unchanged. No new pulmonary infiltrate is seen. Calcification related to bilateral breast augmentation implants again seen. Air dilated colon loops are noted in the upper abdomen as before. IMPRESSION: Cardiomegaly. Small amount of left pleural fluid. Endotracheal and nasogastric tubes in place. Air distended colon noted in the upper abdomen. Electronically Signed by Kiran Patel MD 07/08/2018 08:31 A
[2018-07-08] MEDS: LISINOPRIL 10 MG TAB GT SCH (09:49)
[2018-07-08] MEDS: NEUTRA-PHOS 1.25 GM PACKET PO SCH ×3 (09:49→21:07)
[2018-07-08] MEDS: CHLORHEXIDINE GLUCONATE 0.12 % 15ML UDC (PERIDEX ORAL RINSE) MT SCH ×2 (09:49→21:07)
[2018-07-08] MEDS: PANTOPRAZOLE 40MG INJ (PROTONIX) (C9113) IV SCH (09:49)
[2018-07-08] MEDS ORDERED: GLUCOSE 4 GM CHEW TABLET PO PRN (12:00)
[2018-07-08] MEDS ORDERED: GLUCAGON FOR INJ 1 MG VIAL (J1610) SC PRN (12:00)
[2018-07-08] MEDS ORDERED: DEXTROSE 50% 50 ML SYRINGE IV PRN (12:00)
--- NOTE | 2018-07-08 12:15 | CCN ---
DATE OF SERVICE: 07/08/2018 PULMONARY CRITICAL CARE NOTE: Ms. Porter is seen in the intensive care unit (ICU). Nursing notes no significant changes. The patient is nonresponsive. She remains on ventilator. She has been running an elevated temperature averaging around 102. She is making urine at about 120 mL every 2 hours. She is tolerating tube feeds at 60 mL/h with no residuals. She is not currently needing sedation. PHYSICAL EXAM: Vitals: Temperature is 102.9, pulse 110, respiratory rate 18, blood pressure is 119/57, pulse oximetry 95%. Ventilator is pressure regulated volume control with a tidal volume of 380, a rate of 10, PEEP 8, FiO2 30. General: The patient is nonresponsive. HEENT: Head is normocephalic, atraumatic. Pupils are nonreactive. Moist mucous membranes. Neck: The neck is supple. No jugular venous distention (JVD). No cervical lymphadenopathy. Trachea is midline. Pulmonary: Diminished breath sounds. No wheezes, rales or rhonchi appreciated. No accessory muscle use. Heart: Irregularly irregular. Abdomen: Hypoactive bowel sounds. Extremities: No edema. Distal extremities are cold. LABS: ABG: pH 7.421, pCO2 is 39.7, pO2 is 84.9, HCO3 is 25.2. WBC 9.4, hemoglobin 11.7, hematocrit 37.7, platelet 196. Sodium 140, potassium 4.8, chloride 106, carbon dioxide 27, BUN 16, creatinine 1.08, glucose is 258, calcium is 8.3, phosphorus 3.5, total bilirubin 0.8, AST 48, ALT 53, alkaline phosphatase 73, LD 407, CK 43, total protein 6.7, albumin 2.0, triglycerides 104, cholesterol is 149. Sputum culture grew Streptococcus anginosus group. Chest x-ray shows a left pleural effusion. Endotracheal tube is in good placement. Cardiomegaly. ASSESSMENT AND PLAN: 1. Respiratory failure. The patient remains on mechanical ventilation. She does continue with a fever. However, this is likely neurological and not infectious. She is currently on Zosyn. Today is day #6. We will likely discontinue the Zosyn tomorrow after tomorrow's dose. Her white blood cell count has remained stable. The patient does not require sedation, and therefore, Versed and morphine will be discontinued. 2. Significant cerebrovascular accident. The patient has not been on full anticoagulation because of the significant cerebrovascular accident (CVA). However, she could be on partial anticoagulation for deep venous thrombosis (DVT) prophylaxis, and therefore, she will be started on prophylactic dose of Lovenox. Her overall prognosis of regaining meaningful neurologic recovery does remain poor.
[2018-07-08] MEDS: HumaLOG INSULIN (NovoLOG) PER UNIT SC SCH ×2 (12:42→18:27)
[2018-07-08] MEDS: ENOXAPARIN 40 MG/0.4 ML SYRINGE (J1650) SC SCH (12:42)
[2018-07-08] MEDS: KCL 20MEQ IN D5/0.45NS 1000ML 1,000 ML IV SCH (16:31)
[2018-07-09] VITALS (19 sets, daily range): BP systolic 103–151; BP diastolic 51–65; O2SAT 96
[2018-07-09] MEDS: IPRATROPIUM 0.5MG/ALBUTEROL 2.5MG INH SOL UD 3ML (DUONEB)(J7620) NEB SCH ×7 (00:05→23:03)
[2018-07-09] MEDS: HumaLOG INSULIN (NovoLOG) PER UNIT SC SCH ×4 (00:28→17:42)
[2018-07-09] MEDS: PIPERACILLIN/TAZOBACTAM SOD 3.375 GM in D5W MINI-BAG PLUS 50 ML IV SCH ×4 (00:28→17:43)
[2018-07-09] MEDS: METOPROLOL TART 25 MG TABLET GT SCH ×4 (00:29→17:43)
[2018-07-09 05:04] LABS: BASO # 0.1 10^3/uL (0.0-0.2); BASO % 0.6 % (0.0-1.0); EOS # 0.6 10^3/uL (0.0-0.50); EOS % 2.9 % (0.0-3.0); HEMOGLOBIN 12.4 g/dl (12.0-15.5); LYMPH # 1.4 10^3/uL (1.5-4.5); MEAN CORPUSCULAR HEMOGLOBIN 30.2 pg (27.0-33.0); MEAN CORPUSCULAR VOLUME 97.3 fl (80.0-96.0); MONO % 15.9 % (0.0-5.0); NEUTROPHILS # 14.7 10^3/uL (1.8-7.7); NEUTROPHILS % 72.3 % (36.0-66.0); PLATELET COUNT, AUTOMATED 163 10^3/uL (150-450); RED BLOOD COUNT 4.11 10^6/uL (4.00-5.40); WHITE BLOOD COUNT 20.3 10^3/uL (4.0-10.0)
[2018-07-09 05:21] LABS: MONO # 3.2 10^3/uL (0.0-0.8)
[2018-07-09 05:24] LABS: ALBUMIN 1.7 GM/DL (3.2-5.2); BILIRUBIN,TOTAL 0.5 MG/DL (0.2-1.0); CREATININE FOR GFR 0.99 MG/DL (0.55-1.30); GLOMERULAR FILTRATION RATE 58.5 (>39); POTASSIUM SERUM 4.9 MEQ/L (3.5-5.1); TOTAL PROTEIN 6.4 GM/DL (6.4-8.2)
[2018-07-09] MEDS: KCL 20MEQ IN D5/0.45NS 1000ML 1,000 ML IV SCH ×2 (05:54→20:00)
[2018-07-09 06:00] LABS: ABG HCO3 26.1 MEQ/L (22.0-26.0); ABG O2 SATURATION 96.1 % (95.0-99.0); ABG PARTIAL PRESSURE O2 84.4 mmHg (75.0-100.0); ABG STANDARD HCO3 26.2 MEQ/L (22.0-26.0); ABG TOTAL CO2 27.3 MEQ/L (23.0-31.0); ABG pH (ARTERIAL) 7.444 UNITS (7.350-7.450)
--- NOTE | 2018-07-09 08:24 | REP ---
Clinical: Respiratory failure. Comparison: 07/08/2018. Findings: Endotracheal tube 2 cm above the pau. Nasogastric tube courses below left hemidiaphragm. Bibasilar atelectasis (left greater than right) and small pleural reactions cannot be excluded. No pneumothorax. Skeletal structures stable. Impression: Mild bibasilar atelectasis and small pleural reactions. Findings are similar to prior examination. Electronically Signed by Jagdeep Light MD 07/09/2018 08:16 A
[2018-07-09] MEDS: ENOXAPARIN 40 MG/0.4 ML SYRINGE (J1650) SC SCH (08:50)
[2018-07-09] MEDS: PANTOPRAZOLE 40MG INJ (PROTONIX) (C9113) IV SCH (08:51)
[2018-07-09] MEDS: CHLORHEXIDINE GLUCONATE 0.12 % 15ML UDC (PERIDEX ORAL RINSE) MT SCH ×2 (08:51→20:01)
[2018-07-09] MEDS: LISINOPRIL 10 MG TAB GT SCH (08:51)
[2018-07-09] MEDS: NEUTRA-PHOS 1.25 GM PACKET PO SCH ×3 (08:51→20:01)
--- NOTE | 2018-07-09 09:31 | CCN ---
DATE: 07/09/2018 CRITICAL CARE TIME: 49 minutes, this excludes all procedures. Ms. Potrer is seen for acute respiratory failure secondary to massive stroke. She has had no significant neurologic recovery. She does have labile blood pressure and labile temperature readings. She is on Zosyn for the possibility of infection; however, no significant source of infection has been found. She does have a white count this morning and therefore will repeat blood cultures; however, at this point in time there are no signs of sepsis. Blood pressure has actually been normal despite antihypertensive therapy. The patient remains on lisinopril and Lopressor due to her labile blood pressures. She has p.r.n. Lopressor for intermittent supraventricular tachycardia (SVT). The patient remains on no sedation. She has not had any sedation ever since 07/07/2018, she had one dose of morphine. She has had no spontaneous movements. She does over breathe the vent. PHYSICAL EXAMINATION: Temperature 100.6 rectally, pulse is 109 in atrial fibrillation, respiratory rate of 19, blood pressure is 124/56 with a mean arterial pressure of 78, and oxygen saturation is 96% on 0.30 FiO2. General: The patient is not moving, comatose, on mechanical ventilation. HEENT: Sclerae are clear. Pupils are approximately 4 mm. The right is mildly responsive to light. The left is not responsive to light. There is abnormal corneal reflex. There is also abnormal oculocephalic reflex. The patient does not demonstrate a gag at this point in time, I have not seen her cough. Neck is supple. No tracheal deviation or mass. 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 Cardiac: Irregular. S1 and S2. Without audible murmur, rub or gallop. Jugular venous pulse (JVP) is mildly elevated. There is no systemic edema. Pulmonary: Decreased breath sounds, but without rales, rhonchi or wheezes. No dullness to percussion. No accessory muscle use. Abdomen: Soft, nontender, nondistended. No hepatosplenomegaly. No masses or hernia. Tolerating tube feeds well. Extremities: No cyanosis, clubbing or edema. Skin is pale without rash, jaundice or bruising. Musculoskeletal: No significant joint effusions or evidence of fracture. Neurologic: The patient makes no spontaneous movement. Cranial nerve abnormalities as mentioned above. She does over breathe the vent. She has had no evidence of seizure activity. IMPRESSIONS: 1. Hypercarbic respiratory failure secondary to severe neurologic devastation from stroke. Continue mechanical ventilation. I had a discussion with the daughter in regards to whether or not she would want prolonged mechanical ventilation and tracheostomy versus withdrawal of ventilator. She states her mother would not want to be on prolonged mechanical ventilation and therefore she is thinking on Wednesday if the patient remains alive she will withdraw mechanical ventilation at that time. Currently the patient is DO NOT RESUSCITATE (DNR) and currently supportive measures are in place. 2. Severe neurologic devastation from massive stroke, including thalamic, bilateral posterior medial temporal lobes, cerebellum, midbrain shala and left occipital lobe. Neurologically devastated without any evidence of neurologic improvement over the past few days. 3. Atrial fibrillation, better rate control. At this point in time due to the massive stroke, she is not being fully anticoagulated as there would be a high risk of hemorrhagic conversion. 4. Mild hyperglycemia. Goal for blood sugar will be less than 180. Currently on sliding scale insulin. 5. Deep vein thrombosis (DVT) prophylaxis with Lovenox. 6. Gastrointestinal (GI) prophylaxis with Protonix. 7. Leukocytosis. Will obtain additional blood cultures. The patient has been on Zosyn. No signs of infection. No signs of sepsis. Likely secondary to massive brain infarct. Will continue to monitor for signs and symptoms of infection. Prognosis overall extremely guarded. She has no indication of significant neurologic recovery. I believe that the patient is neurologically devastated and her likelihood of recovery is close to 0%.
[2018-07-09] MEDS: METOPROLOL 5 MG/5 ML VIAL IV PRN (13:15)
[2018-07-09] MEDS: BISACODYL 10 MG SUPP PR PRN (13:16)
[2018-07-10] VITALS (24 sets, daily range): BP systolic 102–124; BP diastolic 52–76; O2SAT 97–98
[2018-07-10] MEDS: IPRATROPIUM 0.5MG/ALBUTEROL 2.5MG INH SOL UD 3ML (DUONEB)(J7620) NEB SCH ×6 (03:32→22:54)
[2018-07-10 05:13] LABS: BASO # 0.1 10^3/uL (0.0-0.2); BASO % 0.6 % (0.0-1.0); EOS # 0.4 10^3/uL (0.0-0.50); EOS % 4.6 % (0.0-3.0); HEMATOCRIT 31.1 % (36.0-47.0); LYMPH # 0.9 10^3/uL (1.5-4.5); LYMPH % 10.5 % (24.0-44.0); MEAN CORPUSCULAR HEMOGLOBIN 30.1 pg (27.0-33.0); MEAN CORPUSCULAR HGB CONC 31.2 g/dl (32.0-36.5); MEAN CORPUSCULAR VOLUME 96.6 fl (80.0-96.0); MONO # 0.9 10^3/uL (0.0-0.8); MONO % 11.1 % (0.0-5.0); NEUTROPHILS # 5.9 10^3/uL (1.8-7.7); NEUTROPHILS % 71.3 % (36.0-66.0); PLATELET COUNT, AUTOMATED 166 10^3/uL (150-450); RED BLOOD COUNT 3.22 10^6/uL (4.00-5.40); WHITE BLOOD COUNT 8.3 10^3/uL (4.0-10.0)
[2018-07-10 05:19] LABS: HEMOGLOBIN 9.7 g/dl (12.0-15.5)
[2018-07-10 05:35] LABS: ALBUMIN 1.7 GM/DL (3.2-5.2); ALT/SGPT 61 U/L (12-78); BILIRUBIN,TOTAL 0.4 MG/DL (0.2-1.0); BLOOD UREA NITROGEN 26 MG/DL (7-18); CALCIUM LEVEL 7.5 MG/DL (8.8-10.2); CARBON DIOXIDE LEVEL 28 MEQ/L (21-32); CHLORIDE LEVEL 101 MEQ/L (98-107); CREATININE FOR GFR 0.94 MG/DL (0.55-1.30); GLOMERULAR FILTRATION RATE > 60.0 (>39); GLUCOSE, FASTING 188 MG/DL (70-100); POTASSIUM SERUM 4.6 MEQ/L (3.5-5.1); SODIUM LEVEL 134 MEQ/L (136-145); TOTAL PROTEIN 6.1 GM/DL (6.4-8.2)
[2018-07-10 05:41] LABS: ABG BASE EXCESS 1.4 (-2.0-2.0); ABG HCO3 25.1 MEQ/L (22.0-26.0); ABG O2 SATURATION 96.5 % (95.0-99.0); ABG PARTIAL PRESSURE O2 86.7 mmHg (75.0-100.0); ABG STANDARD HCO3 25.7 MEQ/L (22.0-26.0); ABG TOTAL CO2 26.2 MEQ/L (23.0-31.0); ABG pH (ARTERIAL) 7.461 UNITS (7.350-7.450)
[2018-07-10] MEDS: HumaLOG INSULIN (NovoLOG) PER UNIT SC SCH ×5 (06:30→23:06)
[2018-07-10] MEDS: METOPROLOL TART 25 MG TABLET GT SCH ×5 (06:31→23:05)
--- NOTE | 2018-07-10 08:27 | REP ---
Clinical: Respiratory failure. Comparison: 07/09/2018. Findings: Endotracheal tube approximately 2 cm above the pau. Nasogastric tube courses below left hemidiaphragm. Left lower lobe/retrocardiac consolidation with possible small pleural effusion essentially unchanged. Trace right lower lobe opacity cannot be excluded as well. No pneumothorax. Skeletal structures stable. Impression: Lines and tubes in satisfactory position. Continued left lower lobe consolidation and possible right basilar opacity similar to prior examination. Electronically Signed by Jagdeep Light MD 07/10/2018 08:18 A
[2018-07-10] MEDS: PANTOPRAZOLE 40MG INJ (PROTONIX) (C9113) IV SCH (08:29)
[2018-07-10] MEDS: ENOXAPARIN 40 MG/0.4 ML SYRINGE (J1650) SC SCH (08:30)
[2018-07-10] MEDS: CHLORHEXIDINE GLUCONATE 0.12 % 15ML UDC (PERIDEX ORAL RINSE) MT SCH ×2 (08:30→21:04)
[2018-07-10] MEDS: NEUTRA-PHOS 1.25 GM PACKET PO SCH ×3 (08:30→21:04)
[2018-07-10] MEDS: LISINOPRIL 10 MG TAB GT SCH (08:32)
[2018-07-10] MEDS: KCL 20MEQ IN D5/0.45NS 1000ML 1,000 ML IV SCH (10:04)
--- NOTE | 2018-07-10 13:13 | CCN ---
DATE: 07/10/2018 The patient continues to have no significant neurologic recovery. She has no purposeful movement. She over breathes the vent. She has had no change in her physical neurologic exam over the past few days. Therefore she remains comatose. She has not had any sedating medications. PHYSICAL EXAMINATION: Temperature is 98.2, T-max was 100.2 rectally at 8 o'clock last night, pulse is 102, respiratory rate is 20, blood pressure is 117/58 with a MAP of 77, oxygen saturations 98% on 0.30 FIO2. PHYSICIAN General: The patient is comatose. No purposeful movements not moving any extremities. HEENT: Sclerae clear and anicteric. Pupils are nonreactive. Corneals are not reactive and oculocephalic is abnormal. Tongue is midline without fasciculations. Neck: Supple, supple. No tracheal deviation or mass. Cardiac: Regular S1-S2 without audible murmur or gallop. No elevated JVP. No peripheral edema. Pulmonary: Clear to auscultation without rales, rhonchi or wheezes. No dullness percussion. No accessory muscle use. Abdomen is soft, nontender, nondistended. No hepatosplenomegaly. No masses or hernia. The patient having bowel movements. No low blood in stool. Neurologic: As mentioned above. The patient is in coma and making no purposeful movements. No evidence of seizure activity. No myoclonus asterixis. Corneal reflex is absent. Oculocephalic reflex is of normal and the right pupil is nonreactive left pupil is minimally reactive. Skin: No rash or bruising. LABS: Laboratory evaluation shows a sodium 134, potassium 4.6, chloride 101, bicarb 20, BUN of 26, creatinine 0.94 with a glucose of 188, albumin is low at 1.7 despite continuous tube feeds, white blood cell count is 8.3, hemoglobin of 9.7 with a platelet count of 166. Chest x-ray Shows decreased chest expansion without any infiltrate or effusion. Arterial blood gas shows a pH of 7.46, pCO2 of 36, pO2 of 87, blood cultures have shown no growth times two on 07/09/2018. IMPRESSION: 1. Neurologic devastation from massive stroke. Requiring mechanical ventilation for airway protection. The plan is palliative extubation on Wednesday as long as there continues to be no neurologic recovery. The stroke involved the thalamus bilateral posterior medial temporal lobe, cerebellum and left occipital lobe. Therefore, given the high risk of hemorrhagic conversion, because of the severity of the stroke full anticoagulation has not been prescribed. 2. Atrial fibrillation, has good rate control. 3. Hyperglycemia. I am stopping the D5 fluids. 4. DVT prophylaxis with Lovenox. GI prophylaxis with Protonix. 5. Leukocytosis. White blood cell count decreased 8.30 without antibiotic therapy. Overall prognosis is extremely poor. She has had no clinical improvement. No signs of neurologic recovery despite not receiving any sedation over the past few days. Likelihood of neurologic recovery is approaching zero.
[2018-07-11] VITALS (27 sets, daily range): BP systolic 112–159; BP diastolic 59–84; O2SAT 95–97
[2018-07-11] MEDS: IPRATROPIUM 0.5MG/ALBUTEROL 2.5MG INH SOL UD 3ML (DUONEB)(J7620) NEB SCH ×6 (03:30→23:46)
[2018-07-11 05:04] LABS: BASO # 0.1 10^3/uL (0.0-0.2); BASO % 0.7 % (0.0-1.0); EOS # 0.4 10^3/uL (0.0-0.50); EOS % 3.7 % (0.0-3.0); HEMATOCRIT 30.8 % (36.0-47.0); HEMOGLOBIN 9.6 g/dl (12.0-15.5); LYMPH # 0.9 10^3/uL (1.5-4.5); LYMPH % 9.1 % (24.0-44.0); MEAN CORPUSCULAR HEMOGLOBIN 30.2 pg (27.0-33.0); MEAN CORPUSCULAR HGB CONC 31.2 g/dl (32.0-36.5); MEAN CORPUSCULAR VOLUME 96.9 fl (80.0-96.0); MONO # 0.9 10^3/uL (0.0-0.8); MONO % 8.9 % (0.0-5.0); NEUTROPHILS # 7.2 10^3/uL (1.8-7.7); NEUTROPHILS % 75.2 % (36.0-66.0); PLATELET COUNT, AUTOMATED 213 10^3/uL (150-450); RED BLOOD COUNT 3.18 10^6/uL (4.00-5.40); WHITE BLOOD COUNT 9.6 10^3/uL (4.0-10.0)
[2018-07-11 05:16] LABS: ALBUMIN 1.8 GM/DL (3.2-5.2); ALT/SGPT 67 U/L (12-78); BILIRUBIN,TOTAL 0.3 MG/DL (0.2-1.0); BLOOD UREA NITROGEN 27 MG/DL (7-18); CALCIUM LEVEL 7.9 MG/DL (8.8-10.2); CARBON DIOXIDE LEVEL 30 MEQ/L (21-32); CHLORIDE LEVEL 102 MEQ/L (98-107); CREATININE FOR GFR 0.81 MG/DL (0.55-1.30); GLOMERULAR FILTRATION RATE > 60.0 (>39); GLUCOSE, FASTING 165 MG/DL (70-100); POTASSIUM SERUM 4.6 MEQ/L (3.5-5.1); SODIUM LEVEL 137 MEQ/L (136-145); TOTAL PROTEIN 6.4 GM/DL (6.4-8.2)
[2018-07-11 05:40] LABS: ABG BASE EXCESS -0.4 (-2.0-2.0); ABG HCO3 22.6 MEQ/L (22.0-26.0); ABG O2 SATURATION 96.9 % (95.0-99.0); ABG PARTIAL PRESSURE CO2 31.3 mmHg (35.0-45.0); ABG PARTIAL PRESSURE O2 93.7 mmHg (75.0-100.0); ABG STANDARD HCO3 24.2 MEQ/L (22.0-26.0); ABG TOTAL CO2 23.6 MEQ/L (23.0-31.0); ABG pH (ARTERIAL) 7.477 UNITS (7.350-7.450)
[2018-07-11] MEDS: METOPROLOL TART 25 MG TABLET GT SCH ×4 (06:00→23:02)
[2018-07-11] MEDS: HumaLOG INSULIN (NovoLOG) PER UNIT SC SCH ×2 (06:00→12:03)
--- NOTE | 2018-07-11 08:32 | REP ---
Portable chest x-ray: Single view. History: Ventilated patient. Sang study: July 10, 2018. Findings: EKG monitoring electrodes overlie the chest. Endotracheal tube is seen in good position at the level of proximal clavicles. NG tube enters left upper quadrant of the abdomen. There is a triangular area of increased density overlying the heart consistent with plate-like atelectasis. Visualization of the left hemidiaphragm is somewhat improved. No new infiltrate is seen. Electronically Signed by Kiran Patel MD 07/11/2018 12:41 P
[2018-07-11] MEDS: CHLORHEXIDINE GLUCONATE 0.12 % 15ML UDC (PERIDEX ORAL RINSE) MT SCH ×2 (09:30→21:24)
[2018-07-11] MEDS: NEUTRA-PHOS 1.25 GM PACKET PO SCH (09:30)
[2018-07-11] MEDS: ENOXAPARIN 40 MG/0.4 ML SYRINGE (J1650) SC SCH (09:30)
[2018-07-11] MEDS: PANTOPRAZOLE 40MG INJ (PROTONIX) (C9113) IV SCH (09:30)
[2018-07-11] MEDS: LISINOPRIL 10 MG TAB GT SCH (09:31)
--- NOTE | 2018-07-11 10:39 | CCN ---
DATE: 07/11/2018 Ms. Porter is seen in the intensive care unit (ICU). She remains on mechanical ventilation. There has been no significant neurologic recovery. No purposeful movement. She is not on any sedation. PHYSICAL EXAMINATION: Temperature 90, 8.6, pulse is 102, respiratory rate 21, blood pressure is 112/69 and pulse ox 95%. The patient is on PRVC with a tidal volume of 380, a rate of 10, PEEP of 8 and FIO2 of 30. GENERAL: The patient remains comatose. No purposeful movements. HEENT: Sclerae is clear. Pupils are nonreactive. Tongue is midline. Neck is supple. No tracheal deviation. HEART: Irregularly irregular. PULMONARY: Clear to auscultation without rales, rhonchi, wheezes or crackles. No accessory muscle use. ABDOMEN: Abdomen is soft, nontender, nondistended. No obvious hepatosplenomegaly. NEURO: No purposeful movements. SKIN: Warm and dry with no obvious rashes. LABORATORY DATA: ABG pH 7.477, pCO2 31.3, pO2 93.7, HCO3 22.6, WBC 9.6, hemoglobin 9.6, hematocrit 30.8, platelets 213. Sodium 137, potassium 4.6, chloride 102, carbon dioxide 30, BUN 27, creatinine 0.81, glucose 165, calcium 7.9, total bili 0.3, AST 79, ALT 67, alk phos 93, total protein 6.4, albumin 1.8. Chest x-ray shows some left-sided atelectasis. Endotracheal tube is in good position. ASSESSMENT/PLAN: 1. Neurologic devastation from massive stroke: The patient is continuing to require mechanical ventilation for airway protection. The plan is for palliative extubation on Wednesday as long as there continues to be no neurologic recovery. The patient is not on full anticoagulation due to the high risk of hemorrhagic conversion as a stroke involves the thalamus, bilateral posterior medial temporal lobe, cerebellum, and left occipital lobe. 2. Atrial fibrillation: The patient has good rate control on Lopressor. The patient's overall prognosis is extremely poor. She has had no clinical improvement and there been no signs of neurologic recovery.
[2018-07-12] VITALS (19 sets, daily range): BP systolic 109–165; BP diastolic 59–87; O2SAT 92–94
[2018-07-12 04:05] LABS: BASO # 0.1 10^3/uL (0.0-0.2); BASO % 0.5 % (0.0-1.0); EOS # 0.2 10^3/uL (0.0-0.50); EOS % 1.4 % (0.0-3.0); HEMATOCRIT 33.9 % (36.0-47.0); HEMOGLOBIN 10.8 g/dl (12.0-15.5); LYMPH # 1.4 10^3/uL (1.5-4.5); LYMPH % 10.2 % (24.0-44.0); MEAN CORPUSCULAR HEMOGLOBIN 30.2 pg (27.0-33.0); MEAN CORPUSCULAR HGB CONC 31.9 g/dl (32.0-36.5); MEAN CORPUSCULAR VOLUME 94.7 fl (80.0-96.0); MONO % 7.5 % (0.0-5.0); NEUTROPHILS # 10.8 10^3/uL (1.8-7.7); NEUTROPHILS % 78.2 % (36.0-66.0); PLATELET COUNT, AUTOMATED 289 10^3/uL (150-450); RED BLOOD COUNT 3.58 10^6/uL (4.00-5.40); WHITE BLOOD COUNT 13.9 10^3/uL (4.0-10.0)
[2018-07-12 04:29] LABS: ALT/SGPT 86 U/L (12-78); BILIRUBIN,TOTAL 0.4 MG/DL (0.2-1.0); BLOOD UREA NITROGEN 28 MG/DL (7-18); CALCIUM LEVEL 8.4 MG/DL (8.8-10.2); CARBON DIOXIDE LEVEL 30 MEQ/L (21-32); CHLORIDE LEVEL 102 MEQ/L (98-107); CREATININE FOR GFR 0.94 MG/DL (0.55-1.30); GLOMERULAR FILTRATION RATE > 60.0 (>39); GLUCOSE, FASTING 122 MG/DL (70-100); POTASSIUM SERUM 5.3 MEQ/L (3.5-5.1); SODIUM LEVEL 138 MEQ/L (136-145); TOTAL PROTEIN 7.1 GM/DL (6.4-8.2)
[2018-07-12] MEDS: IPRATROPIUM 0.5MG/ALBUTEROL 2.5MG INH SOL UD 3ML (DUONEB)(J7620) NEB SCH ×3 (04:30→11:28)
[2018-07-12] MEDS: METOPROLOL 5 MG/5 ML VIAL IV PRN (04:39)
[2018-07-12] MEDS: METOPROLOL TART 25 MG TABLET GT SCH ×2 (05:29→11:12)
[2018-07-12] MEDS: CHLORHEXIDINE GLUCONATE 0.12 % 15ML UDC (PERIDEX ORAL RINSE) MT SCH (08:49)
[2018-07-12] MEDS: PANTOPRAZOLE 40MG INJ (PROTONIX) (C9113) IV SCH (08:49)
[2018-07-12] MEDS: LISINOPRIL 10 MG TAB GT SCH (08:49)
--- NOTE | 2018-07-12 12:48 | CCN ---
DATE OF SERVICE: 07/12/2018 Ms. Porter is seen in the ICU. She remains unresponsive and she has shown no signs of any significant neurologic recovery. She has had no purposeful movement. She remains on mechanical ventilation and is not on any sedation. Plans today are for palliative extubation. PHYSICAL EXAMINATION: Temperature 98.9, pulse 145, blood pressure is 118/77, respiratory rate is 18, pulse ox is 95%. The patient is on ventilator, PRVC with a tidal volume of 380, respiratory rate of 10, PEEP of 8 and FiO2 of 30. GENERAL: Status very who is a day. The patient remains comatose. No purposeful movements. She is on mechanical ventilation. HEENT: Head is normocephalic, atraumatic. Pupils are nonreactive. Tongue is midline. NECK: Supple. No cervical lymphadenopathy. No JVD. No tracheal deviation. HEART: Irregularly irregular. PULMONARY: Clear to auscultation without rales, rhonchi or wheezes. No accessory muscle use. ABDOMEN: Soft, nontender, nondistended. NEURO: No purposeful movements. SKIN: Warm and dry. LABORATORY DATA: WBC is 13.9, hemoglobin 10.8, hematocrit 33.9, platelets 289. Sodium is 138, potassium 5.3, chloride is 102, carbon dioxide is 30, BUN 28, creatinine 0.94, glucose 122, calcium 8.4, total bili 0.4, AST 120, ALT 86, alk phos 103, total protein 7.1, albumin 2.0. ASSESSMENT/PLAN: 1. Neurologic devastation from massive stroke. The patient has been on mechanical ventilation for airway protection. The patient has exhibited no neurologic recovery. Dr. Mcmullen spoke at length with the patient's daughter and plan today is for palliative extubation. The patient's overall prognosis has been extremely poor and there has been no signs of any clinical improvement or neurologic recovery.
== END 2018-07-12 12:35 | disposition expired | DRG 64 ==
LOC: M ED 02:59 → M ED INP 07:11 → M ICU 08:06
PROVIDERS: ADMIT Internal Medicine Pulmonary Disease; ATTEND Internal Medicine Pulmonary Disease
PROC: 5A1955Z Respiratory Ventilation, Greater than 96 Consecutive Hours (ICD-10-PCS; principal; 2018-07-03)
DX: I63.22 Cerebral infarction due to unspecified occlusion or stenosis of basilar artery (principal); R40.20 Unspecified coma; J96.92 Respiratory failure, unspecified with hypercapnia; J69.0 Pneumonitis due to inhalation of food and vomit; G93.1 Anoxic brain damage, not elsewhere classified; E87.3 Alkalosis; I48.2 Chronic atrial fibrillation; D72.829 Elevated white blood cell count, unspecified; I10 Essential (primary) hypertension; Z51.5 Encounter for palliative care; Z66 Do not resuscitate; R73.9 Hyperglycemia, unspecified; Z79.01 Long term (current) use of anticoagulants; Z91.14 Patient's other noncompliance with medication regimen